=== PATIENT | female | born 1980 | race Caucasian/White ===

== ENCOUNTER 2017-09-23 10:53 | Emergency (ER) | payer SELFPAY ==
[~2017-09-23] VITALS: Ht 157.5 cm; Wt 113.9 kg
[~2017-09-23 10:53] MED LIST: CYCL-319 PO; HYDR-3498 PO; NAPR-260 PO
[2017-09-23 10:56] VITALS: Ht 157.5 cm; Wt 113.9 kg
[2017-09-23] MEDS ORDERED: KETOROLAC 30 MG INJ IM STA (11:25)
--- NOTE | 2017-09-23 12:00 | ERD ---
ER Documentation Chief Complaint Chief Complaint Complains of severe back pain x 2 weeks HPI This is a Is a 37-year-old female who presents the emergency department today complaining of some pain that goes down the right buttock into the back of her leg past 2 weeks states that she has some numbness and tingling in her first 3 toes. States that she thinks it is her sciatic. States that a week ago she to urgent care and was given Lamar and steroids. The pain is worse with sitting down and she prefers to stand. Denies any dysuria, fevers or chills. Denies any loss of bowel or bladder control. ROS All systems reviewed and are negative except as per history of present illness. Medications Home Meds Active Scripts Cyclobenzaprine Hcl* (Cyclobenzaprine Hcl*) 10 Mg Tablet, 10 MG PO QHS, #7 TAB Prov:GISELE JEAN PA-C 09/23/17 Naproxen* (Naprosyn*) 500 Mg Tablet, 500 MG PO BID Y for PAIN AND/OR INFLAMMATION, #30 TAB Prov:GISELE JEAN PA-C 09/23/17 Tramadol HCl (Tramadol HCl) 50 Mg Tablet, 50 MG PO Q4 Y for PAIN, #20 TAB Prov:GISELE JEAN PA-C 09/23/17 Hydrocodone Bit-Acetaminophen* (Lamar*) 5-325 Mg Tab, 1 TAB PO Q6 Y for PAIN, # 10 TAB Prov:KAYLENE BORGES. 06/11/15 Cyclobenzaprine Hcl* (Cyclobenzaprine Hcl*) 10 Mg Tablet, 10 MG PO TID, #15 TAB Prov:KAYLENE BORGES. 06/11/15 Naproxen* (Naprosyn*) 500 Mg Tablet, 500 MG PO BID Y for PAIN AND/OR INFLAMMATION, #20 TAB Prov:KAYLENE BORGES. 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 Neck: Full range of motion..~ No meningismus. Resp: Clear to auscultation bilaterally Cardio: Regular rate and rhythm, no murmurs Abd: Soft, non tender, non distended. Normal bowel sounds Skin: No petechiae or rashes Back: Her spine midline tenderness and right-sided paraspinal tenderness. Positive straight leg raise. Pulses 2+. Distal neurovascularly intact. No CVA tenderness. Ext: No cyanosis, or edema. No calf swelling. Non-tenderness palpation. No erythema or warmth. Neur: Awake and alert Psych: Normal Mood and Affect Results 24 hrs Laboratory Tests Test 09/23/17 11:05 Urine Color YELLOW Urine Clarity SLIGHTLY CLOUDY Urine pH 6.0 Urine Specific [place] 1.018 Urine Ketones NEGATIVEmg/dL Urine Nitrite NEGATIVEmg/dL Urine Bilirubin NEGATIVEmg/dL Urine Urobilinogen NEGATIVEmg/dL Urine Leukocyte Esterase TRACELeu/ul Urine Microscopic RBC 1/HPF Urine Microscopic WBC 4/HPF Urine Squamous Epithelial Cells FEW/HPF Urine Bacteria FEW/HPF Urine Hemoglobin NEGATIVEmg/dL Urine Glucose NEGATIVEmg/dL Urine Total Protein NEGATIVEmg/dl Current Medications Medications (Trade) Dose Ordered Sig/Asher Route PRN Reason Start Time Stop Time Status Last Admin Dose Admin Ketorolac Tromethamine (Toradol) 30 mg ONCE STAT IM 09/23/17 11:25 09/23/17 11:27 DC 09/23/17 11:40 Acetaminophen/ Hydrocodone Bitart (Lamar (5/325)) 1 tab ONCE ONCE PO 09/23/17 13:30 09/23/17 13:31 DC 09/23/17 13:39 DIAGNOSTIC IMAGING REPORT Patient: KRISTA CONTEH : 1980 Age: 37 Sex: F MR #: [id number] DOS: 09/23/17 0000 Ordering MD: GISELE JEAN PA-C Location: [facility] Room/Bed: PROCEDURE: XR Lumbar Spine. CLINICAL INDICATION: LBP with radicular symptoms TECHNIQUE: AP, and lateral views of the lumbar spine were obtained. COMPARISON: No prior studies are available for comparison. FINDINGS: There is normal vertebral mineralization and alignment. No fracture or subluxation is seen. There is moderate severe L4-5 and L5-S1 disc height loss. Small anterior osteophytes are seen at multiple levels. The posterior elements are unremarkable. IMPRESSION: Moderate severe L4-5 and L5-S1 degenerative disc disease. Physician Kirby Date Time Electronically viewed and signed by Isamar Thompson Physician on 09/23/2017 13: 19 CS/ CC: GISELE JEAN PA-C Procedures/MDM This is a 37-year-old female who presents the emergency department today complaining of some right-sided back pain and leg pain that goes down the back of her leg. Patient states she had pain with ambulation has been ongoing for the past 2 weeks and therefore did obtain images. UA shows trace leukocyte esterase otherwise negative for infection Per the radiology report images of the lumbar spine moderate to severe L4 and L5 and L5-S1 degenerative disc disease. There is disc height loss. There are small anterior osteophytes seen at multiple levels. Symptoms at this time is consistent with low back pain sciatica likely caused by her degenerative disc disease. She has no erythema or warmth and no swelling in her leg and I have low suspicion for DVT. She is afebrile and otherwise well-appearing. She has no loss of bowel or bladder control have low suspicion for cauda equina or abscess. Given Toradol here in the emergency department. She still complained of pain was therefore given one Lamar prior to discharge. She had previously been given steroids and has been taking them for the last week and I do not feel the patient requires repeat dosing at this time. Patient was also given Lamar by the urgent care. I will give her a prescription for tramadol, Naprosyn and Flexeril for home. At this time the patient is stable for discharge and outpatient management. Patient should follow up with their PCP in the next 1-2 days. Indicated that she does not have a primary care doctor but has a PPO insurance. Have given her referral information for coding and reimbursement specialist. They may return to the emergency department sooner for any persistent or worsening of symptoms. Patient understood and agreed with the plan. Departure Diagnosis: Primary Impression: Back pain Back pain location: low back pain Chronicity: unspecified Back pain laterality: right Sciatica presence: with sciatica Sciatica laterality: sciatica of right side Qualified Code: M54.41 - Right-sided low back pain with right-sided sciatica, unspecified chronicity Condition: GISELE Quezada PA-C Sep 23, 2017 12:00
--- NOTE | 2017-09-23 13:19 | RADRPT ---
PROCEDURE: XR Lumbar Spine. CLINICAL INDICATION: LBP with radicular symptoms TECHNIQUE: AP, and lateral views of the lumbar spine were obtained. COMPARISON: No prior studies are available for comparison. FINDINGS: There is normal vertebral mineralization and alignment. No fracture or subluxation is seen. There is moderate severe L4-5 and L5-S1 disc height loss. Small anterior osteophytes are seen at mul tiple levels. The posterior elements are unremarkable. IMPRESSION: Moderate severe L4-5 and L5-S1 degenerative disc disease. Physician Kirby Date Time Electronically viewed and signed by Physician Kirby on 09/23/2017 13:19 CS/
[2017-09-23] MEDS ORDERED: HYDROCODONE/APAP (5/325) TAB PO ONE (13:30)
[2017-09-23] MEDS ORDERED: TRAM50TA2 PO (13:39)
[2017-09-23] MEDS ORDERED: NAPR-260 PO (13:39)
[2017-09-23] MEDS ORDERED: CYCL-319 PO (13:40)
== END 2017-09-23 13:56 | disposition home or self-care (01) ==
LOC: FTE 10:53
DX: M54.41 Lumbago with sciatica, right side (principal); Z87.891 Personal history of nicotine dependence
CPT/HCPCS: 72100; 81001; 96372; 99284; J1885